=== PATIENT | male | born 1995 | race Caucasian/White ===

== ENCOUNTER 2016-04-24 20:23 | Emergency (ER) | payer SELFPAY ==
[~2016-04-24] VITALS: Ht 172.7 cm; Wt 72.6 kg
--- NOTE | 2016-04-24 20:23 | NUR ---
PT BIB [facility], PREBOOK. TAKEN TO [facility]
--- NOTE | 2016-04-24 20:23 | NUR ---
Christian cerrato in [facility] - 04/24/16 at 2026 by LAURE PT TAKEN TO 3
--- NOTE | 2016-04-24 20:25 | NUR ---
Dr. Rojas evaluating patient
[2016-04-24 20:26] VITALS: BP 149/97
[2016-04-24 20:33] VITALS: BP 149/97
--- NOTE | 2016-04-24 20:33 | NUR ---
Patient discharged with v/s stable PER DR LOUISE. Written and verbal after care instructions given and explained PER DR LOUISE. Patient verbalized understanding. Ambulatory with steady gait. All questions addressed prior to discharge. Advised to follow up with PMD. D/C NOTE ONLY.
== END 2016-04-24 20:33 ==
LOC: MED 20:23
DX: Z02.89 Encounter for other administrative examinations (principal)